=== PATIENT | female | born 2000 | race Caucasian/White ===

== ENCOUNTER → 2020-07-05 | Outpatient (REF) ==
[~2020-07-05] MED LIST: DECADRON PO; LORTAB ELIXER PO; TYLENOL ELIXIR PO; VERAMIST; ZITH250T OR; [UNRECOGNIZED DRUG - OTHER] TOP
== END ==
LOC: M LAB 12:45
PROVIDERS: ATTEND Nurse Practitioner Adult Health
DX: Z02.89 Encounter for other administrative examinations (principal)